=== PATIENT | male | born 1955 | race Caucasian/White ===

== ENCOUNTER 2016-12-17 10:05 | Emergency (ER) | payer MEDICARE ==
[~2016-12-17] VITALS: Ht 182.9 cm; Wt 113.0 kg
[~2016-12-17 10:05] MED LIST: ASPI325T PO; ENAL20TA PO; LYRI100C PO; METF1000 PO; OMEP20TA PO; TYLETAB34 PO
[2016-12-17 10:20] VITALS: BP 133/85; PULSE 92; RESP 16; TEMP 98; O2SAT 97
[2016-12-17] MEDS ORDERED: methylPREDNISolone SOD SUCC 125 MG/2 ML VIAL IM ONE (11:00)
[2016-12-17] MEDS ORDERED: RESP: ALBUTEROL 2.5 MG/IPRATROPIUM 0.5 MG NEB (SCH) NEB ONE ×2 (11:00)
[2016-12-17] MEDS ORDERED: PRED20 PO (11:16)
[2016-12-17] MEDS ORDERED: VENTAER INH (11:16)
--- NOTE | 2016-12-17 11:16 | PD ---
HPI Chief Complaint: Respiratory Symptoms Time Seen by Provider: 10:44 Travel History International Travel<30 days: No Contact w/Intl Traveler<30days: No Traveled to known affect area: No History of Present Illness HPI This patient complains of cough and congestion and shortness of breath. Severity is moderate. Duration 4 days. He is coughing up green phlegm. He denies fever. No alleviating factors. He continues to smoke. PFSH Past Medical History Diabetes: Yes Patient Takes Glucophage: Yes Diminished Hearing: No Hypertension: Yes Tetanus Vaccination: Unknown Social History Alcohol Use: No Tobacco Use: No Substance Use: No Allergies-Medications (Allergen,Severity, Reaction): Coded Allergies: Toradol (Verified Allergy, Severe, FLUSH, 12/17/16) Penicillin (Verified Allergy, Unknown, DOES NOT KNOW WHY, 12/17/16) Reported Meds & Prescriptions Reported Meds & Active Scripts Active Reported Omeprazole 20 Mg Tab 20 Mg PO DAILY Enalapril (Enalapril Maleate) 20 Mg Tab 20 Mg PO BID Lyrica (Pregabalin) 100 Mg Cap 100 Mg PO BID Aspirin 325 Mg Tab 325 Mg PO DAILY Metformin (Metformin HCl) 1,000 Mg Tab 1,000 Mg PO BIDPC With meals Review of Systems General / Constitutional: No: Fever HENT: No: Headaches Respiratory: Positive: Cough, Shortness of Breath Physical Exam Narrative RESPIRATORY: Respiratory effort unlabored, no retractions or use of accessory muscles. Breath sounds reveal diffuse wheezing and are symmetric. No crackles. CARDIOVASCULAR: Regular rate and rhythm without murmur. Extremities showed no edema or varicosities. GASTROINTESTINAL: Abdomen soft, non-tender, nondistended. Positive bowel sounds. No hepato-splenomegaly, or palpable masses. No guarding. SKIN: Inspection shows no rash or ulcers. Palpation shows no induration or nodules. NECK: Symmetrical appearance, midline trachea. No mass or crepitus. Thyroid without enlargement, tenderness, or mass. Psych: Normal mood and affect. Normal insight and judgment. Data Data Last Documented VS Vital Signs Date Time Temp Pulse Resp B/P Pulse Ox O2 Delivery O2 Flow Rate FiO2 12/17/16 10:40 16 97 Room Air 12/17/16 10:20 98.0 92 133/85 Orders Electrocardiogram (12/17/16 ) Albuterol-Ipratropium Neb (Duoneb Neb) (12/17/16 11:00) Albuterol-Ipratropium Neb (Duoneb Neb) (12/17/16 11:00) Methylprednisolone So Succ Inj (Solumedr (12/17/16 11:00) MDM Medical Decision Making Medical Screen Exam Complete: Yes Emergency Medical Condition: Yes Medical Record Reviewed: Yes Differential Diagnosis Bronchitis, pneumonia, URI, COPD Narrative Course I have reviewed the patient's electronic medical record. I saw him 6 weeks ago when he was here for his chronic chest wall pain. I reviewed his chest x-ray from then which was normal I did an EKG which shows sinus rhythm but no ST elevation or ectopy I gave him a series of nebulizer treatments for his wheezing and congestion. I gave him Solu-Medrol injection. Going to cover him with Zithromax and 5 days of prednisone I will give him albuterol inhaler Needs to quit smoking Should follow-up with primary care Diagnosis Primary Impression: COPD with acute bronchitis Additional Instructions: The patient was advised to follow up with their physician and return if they worsen. Work on quitting smoking Med/Other Pt SpecificInfo: Other Disposition: 01 DISCHARGE HOME Condition: Stable Tonny Wright MD Dec 17, 2016 11:15
[2016-12-17] MEDS ORDERED: ZITHTAB PO (11:32)
[2016-12-17] MEDS ORDERED: BACT800T5 PO (11:40)
[2016-12-17 12:02] VITALS: BP 146/78
--- NOTE | 2016-12-18 15:50 | EKG ---
Date Performed: 12/17/2016 Time Performed: 10:54:44 PTAGE: 61 years EKG: Sinus rhythm Possible inferior infarct - age undetermined Compared to prior tracing no significant change Abnorma l ECG PREVIOUS TRACING : 10/29/2016 17.58 DOCTOR: Rosina Boo Interpretating Date/Time 12/18/2016 15:46:35
== END 2016-12-17 12:04 | disposition home or self-care (01) ==
LOC: PHED 10:05
DX: J44.1 Chronic obstructive pulmonary disease with (acute) exacerbation (principal); I10 Essential (primary) hypertension; E11.9 Type 2 diabetes mellitus without complications; Z79.4 Long term (current) use of insulin
CPT/HCPCS: 93005; 94640; 94664; 96372; 99284; J2930